=== PATIENT | female | born 1985 | race Caucasian/White ===

== ENCOUNTER 2017-01-14 05:18 | Inpatient (IN) | payer OTHER ==
[2017-01-14] MEDS ORDERED: DEXTROSE 5%-LACTATED RINGERS 1,000 ML IV PRN (08:08)
[2017-01-14] MEDS ORDERED: OXYTOCIN/DEXTROSE 5%-WATER 30 UNITS/500 ML BAG IV ONE ×2 (08:08→12:52)
[2017-01-14] MEDS ORDERED: LIDOCAINE HCL 50 ML VIAL PERI PRN (08:08)
[2017-01-14] MEDS ORDERED: ONDANSETRON HCL/PF 2 MG/ML VIAL IV PRN (08:08)
[2017-01-14] MEDS ORDERED: RINGERS SOLUTION,LACTATED 1,000 ML IV ONE (08:08)
[2017-01-14] MEDS ORDERED: BUPIVACAINE HCL/0.9 % NACL/PF 250 ML EP PRN (09:01)
[2017-01-14] MEDS ORDERED: fentaNYL CITRATE/PF 50 MCG/ML AMPUL IT SCH (09:15)
--- NOTE | 2017-01-14 09:23 | OR ---
Anesthesia Pre Procedure Eval Date of Service: 01/14/17 Pre Procedure Evaluation: Last Vital Signs Temp 36.4 C L 10/13/16 13:00 Pulse Resp BP 126/75 10/13/16 13:00 Pulse Ox Anesthesia Pre Procedure Evaluation Heart Rate:94 Blood Pressure:107/59 Termperature:36.6C Respiratory Rate:18 SaO2:97 DATE: 01/14/2017 TIME: 0900 INDICATIONS: Active labor, labor pain PAST MEDICAL HISTORY: Multipara patient in active labor requesting labor analgesia, history of rapid delivery. EXAM: Heart regular; lungs clear ASSESSMENT OF MEDICAL STATUS: Labor pain PLANNED PROCEDURE: Combination spinal epidural for labor analgesia Home Medications: HOME MEDICATIONS Vit#96/Ferrous Fum/FA [ S] 1 tab PO DAILY 11/22/13 [Last Taken 01/13/17] Ibuprofen [Motrin] 200 - 800 mg PO Q6H PRN #0 tablet 11/24/13 [Last Taken Unknown] hydrOXYzine HCL [Atarax] 25 mg PO Q4H PRN 10/13/16 [Last Taken 01/11/17] Ascorbic Acid [Vitamin C] 1,000 mg PO DAILY 01/14/17 [Last Taken 01/13/17] Ferrous Sulfate [Iron] 325 mg PO DAILY 01/14/17 [Last Taken 01/13/17] valACYclovir HCL [Valtrex] 1,000 mg PO DAILY 01/14/17 [Last Taken 01/13/17]
--- NOTE | 2017-01-14 09:24 | OR ---
Anesthesia Procedure Note - Anesthesia Procedure Note Date of Service: 01/14/17 Narrative: Vital Signs - Last Taken Temp 36.4 C L 10/13/16 13:00 Pulse Resp BP 126/75 10/13/16 13:00 Pulse Ox 01/14/17 09:23 ANESTHESIA PROCEDURE NOTE Date of Procedure: 01/14/2017 Time of procedure: 900. Performed by: LETICIA Garcia CRNA, MSN [employer] Repairer: Laurie Tang RN. Preprocedure diagnosis: Active labor, labor pain. Post procedure diagnosis: Same. Procedure: Labor Epidural Placement L 3,4. Indications: Active labor, labor pain. Findings: See below. Details of the procedure: The patient was placed on the side of the bed in sitting position. The patient was prepped with DuraPrep and draped in a sterile fashion. Lidocaine 1% was infiltrated to the skin and subcutaneous tissues at the level of the L3 4 interspace. The epidural space was identified using a 18-gauge Tuohy needle with [id number] technique. Fentanyl 20 g was given intrathecally the intrathecal needle was then removed and the epidural catheter was threaded approximately 4 cm, the epidural needle was then removed, and after careful aspiration 3 mL of 1.5% lidocaine with 1-200,000 epinephrine was injected without change in maternal heart rate or sensorium. The catheter was then taped in place. EBL: Minimal. Fluids: N/A. Specimen: N/A. Post procedure condition: The patient tolerated the procedure well with good relief. No complications were noted. Thank you for this consultation. Ronni Cortez CRNA, MANAGER OF DISTRIBUTION, MSN
--- NOTE | 2017-01-14 10:10 | PN ---
Subjective - Date and Time Seen Date: 01/14/17 Time: 10:07 Objective - Vitals Vitals: Last Vital Signs Temp 36.6 C 01/14/17 09:41 Pulse 82 01/14/17 09:41 Resp 16 01/14/17 09:41 BP 126/75 01/14/17 09:41 Pulse Ox 98 01/14/17 09:41 Patient comfortable with epidural Vital signs stable. FHT: 125 baseline, reassuring Contractions q 2-3 min Cervix: 7-8/90/-2, AROM-bloody at 9 AM Impression: Intrauterine at 39-5/7 weeks in labor Plan: Anticipate normal spontaneous vaginal delivery within the next half hour
--- NOTE | 2017-01-14 12:18 | PN ---
Subjective - Date and Time Seen Date: 01/14/17 Time: 11:59 Objective - Vitals Vitals: Last Vital Signs Temp 36.6 C 01/14/17 09:41 Pulse 82 01/14/17 09:41 Resp 16 01/14/17 09:41 BP 126/75 01/14/17 09:41 Pulse Ox 98 01/14/17 09:41 Patient comfortable with epidural Vital signs stable. Pitocin at 4 mu/min. FHT:150 baseline, occasional late deceleration, minimum to moderate variability , Contractions q 2-3 min Cervix: Complete/+2 Impression: Intrauterine at 39-5/7 weeks in labor Plan: Anticipate vaginal delivery soon
[2017-01-14] MEDS ORDERED: BISACODYL 10 MG SUPP.RECT RC PRN (12:52)
[2017-01-14] MEDS ORDERED: hydrOXYzine HCL 25 MG TABLET PO PRN (12:52)
[2017-01-14] MEDS ORDERED: HYDROCORTISONE 30 APPL TUBE TP PRN (12:52)
[2017-01-14] MEDS ORDERED: oxyCODONE HCL/ACETAMINOPHEN 1 TAB TABLET PO PRN (12:52)
[2017-01-14] MEDS ORDERED: BENZOCAINE/MENTHOL 81 SPRAY CAN TP PRN (12:52)
[2017-01-14] MEDS ORDERED: SENNOSIDES 8.6 MG TABLET PO PRN (12:52)
--- NOTE | 2017-01-14 12:55 | OR ---
Operative Report - Dictated Report Narrative: Spontaneous vaginal delivery of viable male at 1234 on 01/14/2017 in GERONIMO position with Apgars 9 and 9, weighing 3919 g. Cord clamping delayed 1 minute. Placenta delivered complete, intact, with three vessel cord Estimated blood loss: less than 50 ml Lacerations: Small abrasion at the 6 o'clock position of the introitus - no repair needed
[2017-01-14] MEDS: GLYCERIN/WITCH HAZEL LEAF 40 APPL BOX TP PRN ×2 (16:29→19:18)
[2017-01-14] MEDS ORDERED: MAGNESIUM HYDROXIDE 30 ML UDC TP PRN (16:38)
[2017-01-14] MEDS: IBUPROFEN 800 MG TABLET PO PRN (16:54)
[2017-01-14] MEDS: DOCUSATE SODIUM 100 MG CAPSULE PO SCH (21:23)
[2017-01-14] MEDS: oxyCODONE HCL/ACETAMINOPHEN 1 TAB TABLET PO PRN (21:23)
[2017-01-15] MEDS: oxyCODONE HCL/ACETAMINOPHEN 1 TAB TABLET PO PRN ×3 (02:32→22:38)
[2017-01-15] MEDS: IBUPROFEN 800 MG TABLET PO PRN ×4 (02:33→22:39)
[2017-01-15] MEDS: DOCUSATE SODIUM 100 MG CAPSULE PO SCH ×2 (09:55→20:07)
[2017-01-15] MEDS: FERROUS SULFATE 325 MG TABLET PO SCH (09:57)
[2017-01-15] MEDS: ASCORBIC ACID 500 MG TABLET PO SCH (09:58)
[2017-01-15] MEDS: PRENATAL VIT#96/FERROUS FUM/FA 1 TAB TABLET PO SCH (09:58)
--- NOTE | 2017-01-15 13:10 | PN ---
Subjective - Date and Time Seen Date: 01/15/17 Time: 13:10 - seen this am Objective - Vitals Vitals: Last Vital Signs Temp 36.1 C L 01/15/17 11:00 Pulse 93 01/15/17 11:00 Resp 18 01/15/17 11:00 BP 103/57 01/15/17 11:00 Pulse Ox 97 01/15/17 11:00 Patient denies complaints. Lochia wnl Abdomen - soft, nontender Uterus - firm, at umbilicus - 1 No calf tenderness Impression: day #1 - s/p spontaneous vaginal delivery. Plan: Continue routine care
[2017-01-16] MEDS: oxyCODONE HCL/ACETAMINOPHEN 1 TAB TABLET PO PRN (07:46)
[2017-01-16] MEDS: DOCUSATE SODIUM 100 MG CAPSULE PO SCH ×2 (07:47→09:00)
[2017-01-16] MEDS: IBUPROFEN 800 MG TABLET PO PRN (07:47)
[2017-01-16] MEDS: FERROUS SULFATE 325 MG TABLET PO SCH ×2 (07:47→09:00)
--- NOTE | 2017-01-16 08:02 | PN ---
Subjective - Date and Time Seen Date: 01/16/17 Time: 08:02 Objective - Vitals Vitals: Last Vital Signs Temp 37 C 01/16/17 06:50 Pulse 73 01/16/17 06:50 Resp 20 01/16/17 06:50 BP 102/51 01/16/17 06:50 Pulse Ox 97 01/16/17 06:50 Patient denies complaints. Lochia wnl Abdomen - soft, nontender Uterus - firm, at umbilicus - 2 No calf tenderness Impression: day #2 - s/p spontaneous vaginal delivery. Plan: Routine discharge instructions
--- NOTE | 2017-01-16 08:38 | PN ---
Subjective - Date and Time Seen Date: 01/16/17 Time: 08:17 Subjective Narrative: Patient states that she started to get up from bed with a bad headache that quickly resolved, but her right upper extremity feels heavy, numb, and slow to respond. She also complains of her tongue and right side of face feeling weak/ numb, and her feet feeling tingly. Objective - Review of Systems Generalized/Overall Review: Reports: Weakness Respiratory: Reports: No Symptoms Reported Cardiac: Reports: No Symptoms Reported Abdominal: Reports: No Symptoms Reported Genitourinary Symptoms: Reports: No Symptoms Reported Musculoskeletal Complaints: Reports: No Symptoms Reported Neurological: Reports: Numbness, Parasthesia, Tingling, Weakness Skin: Reports: No Symptoms Reported Endocrine: Reports: No Symptoms Reported - Vitals Vitals: Last Vital Signs Temp 37 C 01/16/17 06:50 Pulse 73 01/16/17 06:50 Resp 20 01/16/17 06:50 BP 102/51 01/16/17 06:50 Pulse Ox 97 01/16/17 06:50 - Exam Constitutional: Present: Alert, Oriented x3, Cooperative, Mild distress Neck: Present: non-tender Breasts: Present: Exam deferred Respiratory: Present: normal breath sounds, no respiratory distress Cardiovascular/Chest: Present: normal peripheral pulses, regular rate, rhythm Abdomen: Present: soft, nondistended, no rebound tenderness /Rectal: Present: Exam deferred Extremity: Present: normal range of motion, no pedal edema, no calf tenderness Skin Exam: Present: normal color, warm/dry, no cyanosis Neurologic: Present: oriented x 3, 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
[2017-01-16] MEDS ORDERED: ASPIRIN 325 MG TABLET.DR PO STA (08:49)
[2017-01-16] MEDS ORDERED: ASPIRIN 81 MG TAB.CHEW PO STA (08:54)
[2017-01-16] MEDS: PRENATAL VIT#96/FERROUS FUM/FA 1 TAB TABLET PO SCH (09:00)
[2017-01-16] MEDS: ASCORBIC ACID 500 MG TABLET PO SCH (09:00)
[2017-01-16 09:15] LABS: Hematocrit 40.6 % (37.0-47.0); Hemoglobin 13.4 gm/dL (12.5-16.0); Mean Cell Volume 98.5 fl (78-100); Mean Corpuscular Hemoglobin 32.5 pg (27-31); Mean Platelet Volume 10.6 fl (6.0-9.5); Neutrophil # 5.4 K/mm3 (1.3-6.0); Neutrophil % 62.9 % (42-75.0); Platelet Count 156 K/mm3 (150-450); Red Blood Count 4.12 M/mm3 (4.2-5.4); Red Cell Distribution Width 13.2 % (11.5-14.0); White Blood Count 8.5 K/mm3 (4.0-10.5)
[2017-01-16 09:24] LABS: Prothrombin Time (Patient) 9.7 Seconds (9.4-11.4)
[2017-01-16 09:29] LABS: INR 0.93 INR (0.90-1.10); Partial Thrombolplastin Time 27.3 Seconds (24-32)
[2017-01-16 12:33] VITALS: BP 133/70
== END 2017-01-16 10:30 | disposition short-term general hospital (02) | DRG 774 ==
LOC: OBCLINIC 05:18 → OB 07:31
PROVIDERS: ADMIT Obstetrics & Gynecology; ATTEND Obstetrics & Gynecology
PROC: 10E0XZZ Delivery of Products of Conception, External Approach (ICD-10-PCS; principal; 2017-01-14)
PROC: 4A1HXCZ Monitoring of Products of Conception, Cardiac Rate, External Approach (ICD-10-PCS; 2017-01-14)
PROC: 10907ZC Drainage of Amniotic Fluid, Therapeutic from Products of Conception, Via Natural or Artificial Opening (ICD-10-PCS; 2017-01-14)
PROC: 3E0S3CZ (ICD-10-PCS; 2017-01-14)
DX: O99.42 Diseases of the circulatory system complicating childbirth (principal); I63.00 Cerebral infarction due to thrombosis of unspecified precerebral artery; O99.02 Anemia complicating childbirth; D64.9 Anemia, unspecified; O99.334 Smoking (tobacco) complicating childbirth; R29.810 Facial weakness; R20.8 Other disturbances of skin sensation; Z3A.40 40 weeks gestation of pregnancy; Z37.0 Single live birth